=== PATIENT | female | born 1985 | race Caucasian/White ===

== ENCOUNTER → 2019-07-18 | Outpatient (CLI) | payer BC ==
[~2019-07-18] MED LIST: ATIV2TAB PO; BIOT1CAP2 PO; CALC1TAB42 PO; CVS5CHW2 PO; IRON65TA2 PO; PRENTAB9 PO; PROP20TA PO; SERT25TA85 PO; VITA500C24 PO
--- NOTE | 2019-07-20 01:55 | ECWPNPC ---
PATIENT NAME: CHAITANYA MORENO : 1985 GENDER: FEMALE VISIT DATE: 07/18/2019 DISCHARGE DATE: 07/18/19 1618 VISIT LOCKED DATE TIME: PHYSICIAN: AMANDA GANDHI MD RESOURCE: AMANDA GANDHI MD REASON FOR APPOINTMENT 1. PRE-SEDATE HISTORY OF PRESENT ILLNESS FALL RISK SCREENING: SCREENING :ONE FALL WITH INJURY IN THE PAST YEAR 34 YEAR OLD FEMALE PATIENT WITH A HISTORY OF . THE PATIENT WAS SEEN BY HER NEUROLOGIST, DR. SANCHEZ FOR A SPINAL TAP AFTER EXPERIENCING A COUPLE SEIZURES, ONE THAT HAD OCCURRED AT HER WORK, AND ALSO NUMBNESS, TINGLING, AND PAIN ON MAINLY HER RIGHT SIDE. THE PATIENT WAS REFERRED TO OUR CLINIC TO RULE OUT MULTIPLE SCLEROSIS. THE PATIENT DENIES UNEXPLAINED WEIGHT LOSS, FEVER, CHILLS, NEW CHANGES IN HER URINARY OR BOWEL CONTROL. PAIN SCREENING: PATIENT HAS A COMPLAINT OF ACUTE OR CHRONIC PAIN :NO NURSING NOTE: - - - - -. PAIN CENTER INTAKE QUESTIONS: DO YOU HAVE A HISTORY OF MRSA? :NO DO YOU TAKE A BLOOD THINNERS? :NO DO YOU HAVE ANY BLEEDING DISORDERS? :NO ANY NEW NUMBNESS OR WEAKNESS IN YOUR LEGS OR ARMS? :NO ANY PACEMAKER,DEFIBRILLATOR, OR DORSAL COLUMN STIMULATOR? :NO DO YOU HAVE ANY RASHES OR OPEN SORES? :NO ARE YOU ALLERGIC TO IV DYE? :NO ARE YOU DIABETIC? :NO ANY NEW PROBLEMS WITH YOUR MEDICATIONS? :NO HAVE YOU RECEIVED A VACCINE IN THE PAST 30 DAYS? :NO DO YOU PLAN TO RECEIVE A VACCINE IN THE NEXT 21 DAYS? :NO DO YOU NEED ANY PRESCRIPTION? :NO DO YOU TAKE ANY IMMUNOSUPPRESSIVE MEDICATIONS? :NO CURRENT MEDICATIONS TAKING VITAMIN C 500 MG CAPSULE ORALLY TID TAKING ZOLOFT 100 MG TABLET 1 TABLET ORALLY TWICE A DAY TAKING CALCIUM + D3 600-200 MG-UNIT TABLET 1 TABLET WITH A MEAL ORALLY ONCE A DAY TAKING TRAMADOL HCL 50 MG TABLET 1 TABLET NEEDED ORALLY 3 TIMES A DAY TAKING DULOXETINE HCL 60 MG CAPSULE DELAYED RELEASE PARTICLES 1 CAPSULE ORALLY TWICE A DAY TAKING PROPRANOLOL HCL 40 MG TABLET 1 TABLET ORALLY TWICE A DAY TAKING LORAZEPAM 2 MG TABLET 1 TABLET NEEDED ORALLY 4 TIMES A DAY TAKING KEPPRA 750 MG TABLET 1 TABLET ORALLY TWICE A DAY TAKING VITAMIN B-12 1000 MCG TABLET CHEWABLE DIRECTED ORALLY TAKING VITAMIN D3 250 MCG (15470 UT) CAPSULE DIRECTED ORALLY 3 TIMES A WEEK NOT-TAKING KLONOPIN 1 MG TABLET 1 TABLET AT BEDTIME ORALLY QID NOT-TAKING 1 NOT-TAKING IRON 325 (65 FE) MG TABLET 1 TABLET ORALLY TID NOT-TAKING PYRIDIUM 100 MG TABLET 2 TABLETS AFTER MEALS ORALLY THREE TIMES A DAY NOT-TAKING RAPAFLO 8 MG CAPSULE 1 CAPSULE WITH A MEAL ORALLY ONCE A DAY NOT-TAKING OXYCODONE-ACETAMINOPHEN 5-325 MG TABLET 1 TABLET NEEDED ORALLY EVERY 6 HRS NOT-TAKING LEXAPRO 40MG DIRECTED NOT-TAKING SPIRONOLACTONE UNKNOWN TABLET 1 TABLET ORALLY TIB NOT-TAKING MELOXICAM 7.5 MG TABLET 1 TABLET ORALLY BID PRN MEDICATION LIST REVIEWED AND RECONCILED WITH THE PATIENT PAST MEDICAL HISTORY DEPRESSION ANXIETY HX ENDOMETRIOSIS 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 WARTS REMOVED FROM BOTH FEET CYSTO 11/17/12 LAPAROSCOPIC HYSTERECTOMY FOR ENDOMETRIOSIS = DR. BROWNE @[facility] 10/23/2017 APPENDECTOMY 11/2017 CHOLECYSTECTOMY 11/2017 FAMILY HISTORY FATHER: ALIVE, REMOVAL OF BENIGN NEOPLASM PANCREAS, ANXIETY, DEPRESSION MOTHER: ALIVE, HYPERTENSION, DIABETES, HYPERLIPIDEMIA, DEPRESSION 1 BROTHER(S) - HEALTHY. 1 SON(S) , 2 DAUGHTER(S) - HEALTHY. DENIES FAMILY HISTORY OF UROLOGICAL DX. SOCIAL HISTORY GENERAL: TOBACCO USE ARE YOU A:LIGHT TOBACCO SMOKER ALCOHOL SCREENING DID YOU HAVE A DRINK CONTAINING ALCOHOL IN THE PAST YEAR?YES HOW OFTEN DID YOU HAVE SIX OR MORE DRINKS ON ONE OCCASION IN THE PAST YEAR?NEVER (0 POINTS) HOW MANY DRINKS DID YOU HAVE ON A TYPICAL DAY WHEN YOU WERE DRINKING IN THE PAST YEAR?1 OR 2 (0 POINTS) HOW OFTEN DID YOU HAVE A DRINK CONTAINING ALCOHOL IN THE PAST YEAR?TWO TO THREE TIMES PER WEEK (3 POINTS) POINTS3 INTERPRETATIONPOSITIVE RECREATIONAL DRUG USE DRUG USE? DENIES 07/18/19 CAFFEINE CAFFEINE USE?YES COFFEE = 1 CUP PER DAY SEXUAL HX HAD SEX IN THE LAST 12 MONTHS (VAGINAL, ORAL, OR ANAL)?YES WITHMEN ONLY PREVENTION STRATEGIES DISCUSSED:OTHER USE PROTECTION?NO HAVE YOU EVER HAD AN STD?NO YAZIDI [id number] BUDDHIST NO PENTECOSTAL BELIEFS THAT WOULD IMPACT HEALTH CARE. LANGUAGE UPPER SORBIAN. EDUCATION LEVEL OF EDUCATION:FINISHED COLLEGE RN LEARNING BARRIERS / SPECIAL NEEDS BARRIERS TO LEARNING?NO HEARING IMPAIRED?NO VISION IMPAIRED?YES :CORRECTIVE LENSES READINESS TO LEARN?YES LEARNING PREFERENCES?NO DOMESTIC VIOLENCE DO YOU FEEL SAFE IN YOUR ENVIRONMENT?YES DIET: REGULAR. EXERCISE: NO REGULAR EXERCISE. MARITAL STATUS: . PAIN CLINIC PFS, CLERGY, PUBLIC HEALTH REFERRALS HAS THE PATIENT BEEN EDUCATED REGARDING HIS/HER PLAN OF CARE?YES HAS THE PATIENT BEEN EDUCATED REGARDING PAIN, THE RISK FOR PAIN, THE IMPORTANCE OF EFFECTIVE PAIN MANAGEMENT, AND THE PAIN ASSESSMENT PROCESS?YES ADVANCE DIRECTIVE ADVANCE DIRECTIVE DISCUSSED WITH PATIENT: HCP ILANDWIGHT MORENO [phone] HOSPITALIZATION/MAJOR DIAGNOSTIC PROCEDURE OVARIAN CYST CHILDBIRTH HYSTERECTOMY REVIEW OF SYSTEMS CONSTITUTIONAL: ANY RECENT FEVER OR ILLNESS NO . ANY CHANGE IN YOUR MEDICAL CONDITION? NO . CHILLS NO . MUSCULOSKELETAL: ANY NEW PATTERNS OF PAIN OR NUMBNESS? YES . SYSTEMIC LUPUS NO . LYME DISEASE NO . GASTROENTEROLOGY: ANY NEW CHANGE IN BOWEL CONTROL? NO . BARRETTS ESOPHAGUS NO . CIRRHOSIS NO . HEPATITIS NO . LIVER FAILURE NO . NO ABDOMINAL PAIN. ACID REFLUX NO . NO ANOREXIA. NO CONSTIPATION. NO CRAMPING. NO NAUSEA. NO RECTAL BLEEDING. NO VOMITING. UNEXPLAINED WEIGHT LOSS NO . GENITOURINARY: ANY NEW CHANGE IN BLADDER CONTROL? NO . IS THERE A CHANCE YOU COULD BE ? NO . NEUROLOGY: HEAD INJURY NO . NEW ONSET DIZZINESS NO . HEADACHE NO, INTERMITTENT . STROKES NO . VERTIGO YES . CARDIOLOGY: ANGINA NO . HEART ATTACK NO . HEART SURGERY NO . CONGESTIVE HEART FAILURE/FLUID OVERLOAD NO . CHEST PAIN NO . HIGH BLOOD PRESSURE NO . IRREGULAR HEART BEAT NO . RESPIRATORY: SLEEP APNEA NO . ASTHMA NO . SHORTNESS OF BREATH ON EXERTION NO . COUGH NO . WHEEZING NO . ENDOCRINOLOGY: ADRENAL GLAND DISORDER NO . THYROID DISORDER NO . VITAL SIGNS WT 167.8 LBS, HT 64 IN, BMI 28.80 INDEX, BP 114/56 MM HG, HR 60 /MIN, RR 18 /MIN, TEMP 97.0 F, OXYGEN SAT % 92%, NA INITIALS AW 1501, REVIEWED BY: LS. EXAMINATION GENERAL EXAMINATION: PATIENT IS ALERT O X 3 AND COOPERATIVE. LUNGS CLEAR, TO AUSCULTATION. HEART: NO MURMURS OR GALLOPS; FACIAL CRANIAL NERVES ARE GROSSLY NORMAL. GOOD SYMMETRY OF FACIAL MUSCLE MOVEMENT. NORMAL VISUAL ONEAL. RIGHT LEG IS WEAKER AT EXTENSION AND FLEXION. 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 ASSESSMENTS NEUROLOGICAL SYMPTOMS - R29.90 (PRIMARY) RULE OUT MULTIPLE SCLEROSIS. TREATMENT NEUROLOGICAL SYMPTOMS CLINICAL NOTES: WE DISCUSSED SEVERAL ISSUES WITH MS. MORENO' CASE. THE PATIENT WILL HAVE HER SPINAL TAP WITH IV SEDATION NEXT WEEK. WE DISCUSSED THE BENEFITS, RISKS, AND ALTERNATIVES OF THE INJECTION AND THE PATIENT WOULD LIKE TO PROCEED. INSTRUCTIONS WERE GIVEN, QUESTIONS WERE ANSWERED, PATIENT REPORTS UNDERSTANDING AND AGREES WITH THE PLAN. I, NATALIIA VÁZQUEZ, DOCUMENTED THE ABOVE INFORMATION ACTING A SCRIBE FOR DR. GANDHI. I HAVE REVIEWED THE ABOVE DOCUMENT, WRITTEN BY NATALIIA LEBRON AND I VERIFY THAT IT IS ACCURATE. . PROCEDURE CODES G8427 CURRENT MEDS W/DOSAGES DOCUMENTED G8730 PAIN ASSESS POS TOOL F/U PLAN DOC FA211 ESTABILISHED PATIENT [facility] FACILITY CHARGE DISPOSITION & COMMUNICATION FOLLOW UP 1 WEEK ELECTRONICALLY SIGNED BY AMANDA GANDHI MD, MD ON 07/19/2019 AT 02:57 PM EDT DISCLAIMER : THIS IS A VISIT SUMMARY EXTRACTED FROM THE [employer] CHART. IT IS NOT A COPY OF THE [employer] PROGRESS NOTE. MTDD
== END ==
LOC: M PAIN 14:45
PROVIDERS: ATTEND Anesthesiology
DX: R29.90 Unspecified symptoms and signs involving the nervous system (principal)

== ENCOUNTER → 2019-07-21 | Outpatient (CLI) | payer BC | LOC: M LABSMTC 09:31 | PROVIDERS: ATTEND Anesthesiology | DX: Z03.818 Encounter for observation for suspected exposure to other biological agents ruled out (principal); Z11.59 Encounter for screening for other viral diseases | CPT/HCPCS: C9803; U0003 ==

== ENCOUNTER → 2019-07-24 | Outpatient (CLI) | payer BC ==
[~2019-07-24] MED LIST changes: +LIDOCAINE 1% SDV 30ML VIAL As Ordered ONE; +MIDAZOLAM INJ 2MG/2ML VIAL (J2250 PER 1MG) As Ordered ONE; +fentaNYL 100 MCG/2 ML INJECTION (J3010) As Ordered ONE
[2019-07-24 11:51] LABS: COLOR, CSF COLORLESS (COLORLESS); CSF TUBE# CELL CNT TUBE 3
[2019-07-24 11:52] LABS: APPEARANCE, CSF CLEAR (CLEAR)
[2019-07-24 12:17] LABS: CSF TUBE# GLU TUBE 1; CSF TUBE# TP TUBE 1; GLUCOSE CSF 57 MG/DL (40-75); TOTAL PROTEIN,CSF 34 MG/DL (15-45)
--- NOTE | 2019-07-24 23:39 | ECWPNPC ---
PATIENT NAME: CHAITANYA MORENO : 1985 GENDER: FEMALE VISIT DATE: 07/24/2019 DISCHARGE DATE: 07/24/19 1459 VISIT LOCKED DATE TIME: PHYSICIAN: AMANDA GANDHI MD RESOURCE: AMANDA GANDHI MD REASON FOR APPOINTMENT 1. SPINAL TAP PER DR Estiven BATES DONE HISTORY OF PRESENT ILLNESS GENERAL: - -. FALL RISK SCREENING: SCREENING :ONE FALL WITHOUT INJURY IN THE PAST YEAR BRUISING ON ARM PAIN SCREENING: PATIENT HAS A COMPLAINT OF ACUTE OR CHRONIC PAIN :YES LOCATION OF PAIN:LEG(S) INTENSITY OF PAIN (SCALE OF 1 TO 10):0 PAIN RATING CHANGES WHAT DOES YOUR PAIN FEEL LIKE:ACHING DURATION:PERIODIC, INTERMITTENT PAIN IS INCREASED BY:OTHERS NOTHING PAIN IS DECREASED BY:USE OF PAIN MEDICATIONS, OTHERS HEAT NURSING NOTE: - -. PAIN CENTER INTAKE QUESTIONS: DO YOU HAVE A HISTORY OF MRSA? :NO DO YOU TAKE A BLOOD THINNERS? :NO DO YOU HAVE ANY BLEEDING DISORDERS? :NO ANY NEW NUMBNESS OR WEAKNESS IN YOUR LEGS OR ARMS? :NO ANY PACEMAKER,DEFIBRILLATOR, OR DORSAL COLUMN STIMULATOR? :NO DO YOU HAVE ANY RASHES OR OPEN SORES? :NO ARE YOU ALLERGIC TO IV DYE? :NO ARE YOU DIABETIC? :NO ANY NEW PROBLEMS WITH YOUR MEDICATIONS? :NO HAVE YOU RECEIVED A VACCINE IN THE PAST 30 DAYS? :NO DO YOU PLAN TO RECEIVE A VACCINE IN THE NEXT 21 DAYS? :NO DO YOU TAKE ANY IMMUNOSUPPRESSIVE MEDICATIONS? :NO ANY HISTORY OF SEIZURES? :YES MOST RECENT SEIZURE WAS IN JANUARY ANY HISTORY OF CARDIAC ISSUES OR EVENTS? :NO DO YOU HAVE SLEEP APNEA? : NO. ANY RECENT HEAD INJURY? :NO DO YOU HAVE ANY NEW INFECTIONS? :NO IS THERE A CHANCE YOU COULD BE ? :NO ARE YOU BREAST FEEDING? :NO WHEN DID YOU LAST EAT? : -2330 07/23/19 WHEN DID YOU LAST DRINK? : -0700 07/24/19 WHAT DID YOU LAST DRINK? : -FLAVORED WATER NAME OF PERSON DRIVING YOU HOME? : -SPOUSE - ILAN DO YOU HAVE ANY OTHER QUESTIONS OR CONCERNS? : - CURRENT MEDICATIONS TAKING VITAMIN C 500 MG CAPSULE ORALLY TID, NOTES: 07/23/19 07 TAKING ZOLOFT 100 MG TABLET 1 TABLET ORALLY TWICE A DAY, NOTES: 07/24/19 07 TAKING CALCIUM + D3 600-200 MG-UNIT TABLET 1 TABLET WITH A MEAL ORALLY ONCE A DAY, NOTES: 07/23/19 230 TAKING TRAMADOL HCL 50 MG TABLET 1 TABLET NEEDED ORALLY 3 TIMES A DAY, NOTES: 07/23/19699 TAKING DULOXETINE HCL 60 MG CAPSULE DELAYED RELEASE PARTICLES 1 CAPSULE ORALLY TWICE A DAY, NOTES: 07/24/19699 TAKING PROPRANOLOL HCL 40 MG TABLET 1 TABLET ORALLY TWICE A DAY, NOTES: 07/24/19699 TAKING LORAZEPAM 2 MG TABLET 1 TABLET NEEDED ORALLY 4 TIMES A DAY, NOTES: 07/23/192329 TAKING KEPPRA 750 MG TABLET 1 TABLET ORALLY TWICE A DAY, NOTES: 07/24/19699 TAKING VITAMIN B-12 1000 MCG TABLET CHEWABLE DIRECTED ORALLY , NOTES: 07/23/19699 TAKING VITAMIN D3 250 MCG (93834 UT) CAPSULE DIRECTED ORALLY 3 TIMES A WEEK, NOTES: 07/23/19699 NOT-TAKING KLONOPIN 1 MG TABLET 1 TABLET AT BEDTIME ORALLY QID NOT-TAKING 1 NOT-TAKING IRON 325 (65 FE) MG TABLET 1 TABLET ORALLY TID NOT-TAKING PYRIDIUM 100 MG TABLET 2 TABLETS AFTER MEALS ORALLY THREE TIMES A DAY NOT-TAKING RAPAFLO 8 MG CAPSULE 1 CAPSULE WITH A MEAL ORALLY ONCE A DAY NOT-TAKING OXYCODONE-ACETAMINOPHEN 5-325 MG TABLET 1 TABLET NEEDED ORALLY EVERY 6 HRS NOT-TAKING LEXAPRO 40MG DIRECTED NOT-TAKING SPIRONOLACTONE UNKNOWN TABLET 1 TABLET ORALLY TIB NOT-TAKING MELOXICAM 7.5 MG TABLET 1 TABLET ORALLY BID PRN MEDICATION LIST REVIEWED AND RECONCILED WITH THE PATIENT PAST MEDICAL HISTORY DEPRESSION ANXIETY HX ENDOMETRIOSIS 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 WARTS REMOVED FROM BOTH FEET CYSTO 11/17/12 LAPAROSCOPIC HYSTERECTOMY FOR ENDOMETRIOSIS = DR. BROWNE @[facility] 10/23/2017 APPENDECTOMY 11/2017 CHOLECYSTECTOMY 11/2017 FAMILY HISTORY FATHER: ALIVE, REMOVAL OF BENIGN NEOPLASM PANCREAS, ANXIETY, DEPRESSION MOTHER: ALIVE, HYPERTENSION, DIABETES, HYPERLIPIDEMIA, DEPRESSION 1 BROTHER(S) - HEALTHY. 1 SON(S) , 2 DAUGHTER(S) - HEALTHY. DENIES FAMILY HISTORY OF UROLOGICAL DX. SOCIAL HISTORY GENERAL: TOBACCO USE ARE YOU A:LIGHT TOBACCO SMOKER SMOKING CESSATION INFORMATION GIVEN07/21/2019 ENCOURAGED TO QUIT LATEX QUESTIONNAIRE LATEX ALLERGY : HAVE YOU EVER DEVELOPED ANY TYPE OF REACTION AFTER HANDLING LATEX PRODUCTS SUCH RUBBER GLOVES, CONDOMS, DIAPHRAGMS, BALLOONS, SOCKS, OR UNDERWEAR?NO LATEX ALLERGY : HAVE YOU EVER DEVELOPED ANY TYPE OF REACTION DURING OR AFTER DENTAL APPOINTMENT, VAGINAL/RECTAL EXAMINATION, SURGICAL PROCEDURE, OR ANY OTHER EXPOSURE?NO LATEX RISK : HAVE YOU EVER HAD ANY DIFFICULTY BREATHING OR HIVES AFTER EATING OR HANDLING ANY FRUITS, OR VEGETABLES; SUCH KIWI, BANANAS, STONE FRUITS, OR CHESTNUTSNO LATEX RISK : DO YOU HAVE A PREVIOUS PERSONAL HISTORY OF MORE THAN NINE SURGERIES, SPINA BIFIDA, OR REPEATED CATHERIZATIONS? NO LATEX RISK : ARE YOU FREQUENTLY EXPOSED TO LATEX PRODUCTS IN YOUR OCCUPATION?NO DATE ASKED : 07/21/2019 ALCOHOL SCREENING DID YOU HAVE A DRINK CONTAINING ALCOHOL IN THE PAST YEAR?YES HOW OFTEN DID YOU HAVE SIX OR MORE DRINKS ON ONE OCCASION IN THE PAST YEAR?NEVER (0 POINTS) HOW MANY DRINKS DID YOU HAVE ON A TYPICAL DAY WHEN YOU WERE DRINKING IN THE PAST YEAR?1 OR 2 (0 POINTS) HOW OFTEN DID YOU HAVE A DRINK CONTAINING ALCOHOL IN THE PAST YEAR?TWO TO THREE TIMES PER WEEK (3 POINTS) POINTS3 INTERPRETATIONPOSITIVE RECREATIONAL DRUG USE DRUG USE? DENIES 07/18/19 CAFFEINE CAFFEINE USE?YES COFFEE = 1 CUP PER DAY SEXUAL HX HAD SEX IN THE LAST 12 MONTHS (VAGINAL, ORAL, OR ANAL)?YES WITHMEN ONLY PREVENTION STRATEGIES DISCUSSED:OTHER USE PROTECTION?NO HAVE YOU EVER HAD AN STD?NO LATTER DAY [id number] ISLAM NO YARSANISM BELIEFS THAT WOULD IMPACT HEALTH CARE. LANGUAGE SINGAPOREAN. EDUCATION LEVEL OF EDUCATION:FINISHED COLLEGE RN LEARNING BARRIERS / SPECIAL NEEDS BARRIERS TO LEARNING?NO HEARING IMPAIRED?NO VISION IMPAIRED?YES :CORRECTIVE LENSES READINESS TO LEARN?YES LEARNING PREFERENCES?NO DOMESTIC VIOLENCE DO YOU FEEL SAFE IN YOUR ENVIRONMENT?YES DIET: REGULAR. EXERCISE: NO REGULAR EXERCISE. MARITAL STATUS: . PAIN CLINIC PFS, CLERGY, PUBLIC HEALTH REFERRALS WAS THE PROVIDER NOTIFIED OF ANY PERTINENT INFO?YES HAS THE PATIENT BEEN EDUCATED REGARDING HIS/HER PLAN OF CARE?YES HAS THE PATIENT BEEN EDUCATED REGARDING PAIN, THE RISK FOR PAIN, THE IMPORTANCE OF EFFECTIVE PAIN MANAGEMENT, AND THE PAIN ASSESSMENT PROCESS?YES ADVANCE DIRECTIVE ADVANCE DIRECTIVE DISCUSSED WITH PATIENT: HCP ILAN MORENO [phone] HOSPITALIZATION/MAJOR DIAGNOSTIC PROCEDURE OVARIAN CYST CHILDBIRTH HYSTERECTOMY VITAL SIGNS WT 167 LBS, HT 64 IN, BMI 28.66 INDEX, BP 124/64 MM HG, HR 70 /MIN, RR 18 /MIN, TEMP 96.9 F, OXYGEN SAT % 100%, SAFE IN ENV? (Y/N) YES, NA [place] [facility] [place], REVIEWED BY: MARIYA. EXAMINATION GENERAL EXAMINATION: THE PATIENT IS ALERT, ORIENTED TIMES THREE AND COOPERATIVE. HEART SHOWS REGULAR RHYTHM, NO MURMURS AND NO GALLOPS. LUNGS ARE CLEAR TO AUSCULTATION. ASSESSMENTS NEUROLOGICAL SYMPTOMS - R29.90 (PRIMARY) R/O MS. PROCEDURES PAIN NURSING RECORD PRE-PROCEDURE IV SITE LEFT HAND, IV STARTED # 20, IV STARTED BY: Anisa TALBERT RN, IV ATTEMPTS 1 PROCEDURE IN ROOM 1035, PHYSICIAN IN ROOM 1044, START 1057, FINISH 1115, PHYSICIAN OUT OF ROOM 1120, OUT OF ROOM 1129, STEROID N/A, O2 NC 2 LPM, ECG NORMAL SINUS, PATIENT SHIELDED NO, SAFETY STRAP NO, PREP BETADINE DR. GANDHI, IV INFUSED LACTATED RINGERS 500 ML, DRESSING TEGADERM DR. GANDHI LOC: 1. ALERT, ORIENTED RESP: 1. REGULAR, NO DYSPNEA COLOR: 1. PINK SKIN: 1. WARM, DRY POSITION: 3. LATERAL VITALS: 1040 101/58 60-18 100% 1045 101/56 60-18 100% 1046 VERSED 1 MG IV BY Hitesh WHITFIELD RN 1050 97/53 60-16 100% 1052 VERSED 1 MG IV BY Hitesh WHITFIELD RN 1055 102/55 60-16 100% 1059 FENTANYL 25 MCG IV BY Hitesh WHITFIELD RN 1100 94/54 56-16 100%. OPENING PRESSURE 18 CM WATER IN LEFT LATERAL POSITION. 1104 FENTANYL 25 MCG IV BY Hitesh WHITFIELD RN 1105 102/55 61-16 100% 1110 102/57 62-16 100% 1115 105/58 66-16 100% 1130 122/57 60-16 100% SPINAL TAPPATIENT INTERVIEWED, EXAMINATIONS AND TREATMENT QUESTIONNAIRES REVIEWED.QUESTION OF MULTIPLE SCLEROSISPROCEDURE, RISKS AND BENEFITS WERE DISCUSSED WITH PATIENT.PATIENT POSITIONED: LEFT LATERALTREATMENT AREA PREPPED WITH BETADINE IN STERILE FASHION.LOCAL INFILTRATE 1% LIDOCAINE AT THE L3-L4 INTERSPACE.22-GAUGE QUINCKE NEEDLE ADVANCED UNTIL THE DURA WAS FELT AND CSF IS FREE-FLOWING.BLOOD RETURN ENCOUNTERED: NOPARASTHESIA ENCOUNTERED: NOOPENING PRESSURE WAS MEASURED AT 18 CM OF WATER.4 VIALS X 3.0 CC OF CSF WAS COLLECTED.CSF DESCRIPTION: CLEARCSF SENT FOR STUDIES ORDERED BY REFERRING PHYSICIAN.VITAL SIGNS: STABLECOMPLICATIONS: NONE.EBL: LESS THAN 5 MLIV SEDATION START TIME: 1046IV SEDATION END TIME: 1120TOTAL [id number] TIME: 34 MINUTESDISCHARGE WHEN PATIENT MEETS CRITERIAPATIENT WILL FOLLOW UP WITH DR. SANCHEZ AND CALL OUR OFFICE NEEDED. PROCEDURE CODES 06854 SPINAL FLUID TAP DIAGNOSTIC 77069 MOD SED SAME PHYS/QHP 5/>YRS 93321 MOD SED SAME PHYS/QHP EA DISPOSITION & COMMUNICATION FOLLOW UP F/UP WITH NEUROLOGIST (REASON: POST SPINAL TAP) ELECTRONICALLY SIGNED BY AMANDA GANDHI MD, ON 07/24/2019 AT 12:32 PM EDT DISCLAIMER : THIS IS A VISIT SUMMARY EXTRACTED FROM THE [employer] CHART. IT IS NOT A COPY OF THE [employer] PROGRESS NOTE. MTDD
== END ==
LOC: M PAIN 09:45
PROVIDERS: ATTEND Anesthesiology
DX: R29.90 Unspecified symptoms and signs involving the nervous system (principal)
CPT/HCPCS: 36415; 62270; 82784; 82945; 83916; 84157; 87070; 87102; 87205; 87252; 87483; 88108; 88313; 89050; 99152; 99153; J2250; J3010

== ENCOUNTER → 2021-09-11 | Outpatient (CLI) | payer BC ==
[~2021-09-11] MED LIST changes: -CVS5CHW2 PO; -LIDOCAINE 1% SDV 30ML VIAL As Ordered ONE; +MELA5TAB47 PO; -MIDAZOLAM INJ 2MG/2ML VIAL (J2250 PER 1MG) As Ordered ONE; -fentaNYL 100 MCG/2 ML INJECTION (J3010) As Ordered ONE
[2021-09-11 10:46] LABS: FOLATE 7.8 NG/ML
== END ==
LOC: M WUC 08:05
PROVIDERS: ATTEND Psychiatry & Neurology Neurology
DX: G35 Multiple sclerosis (principal)

== ENCOUNTER → 2021-12-17 | Outpatient (CLI) | payer BC ==
[2021-12-17 10:42] LABS: BASO # 0.1 10^3/uL (0.0-0.2); BASO % 0.6 % (0.0-1.0); EOS # 0.1 10^3/uL (0.0-0.5); HEMATOCRIT 41.9 % (36.0-47.0); HEMOGLOBIN 13.9 g/dl (12.0-15.5); LYMPH # 1.8 10^3/uL (1.5-5.0); MEAN CORPUSCULAR HEMOGLOBIN 29.4 pg (27.0-33.0); MEAN CORPUSCULAR HGB CONC 33.2 g/dl (32.0-36.5); MEAN CORPUSCULAR VOLUME 88.6 fl (80.0-96.0); MONO # 0.7 10^3/uL (0.0-0.8); MONO % 8.3 % (2.0-8.0); NEUTROPHILS # 5.6 10^3/uL (1.5-8.5); NEUTROPHILS % 67.9 % (36.0-66.0); PLATELET COUNT, AUTOMATED 314 10^3/uL (150-450); RED BLOOD COUNT 4.73 10^6/uL (4.00-5.40); WHITE BLOOD COUNT 8.2 10^3/uL (4.0-10.0)
[2021-12-17 11:40] LABS: ALBUMIN 3.8 GM/DL (3.2-5.2); ALT/SGPT 29 U/L (12-78); BILIRUBIN,TOTAL 0.8 MG/DL (0.2-1.0); BLOOD UREA NITROGEN 12 MG/DL (7-18); CALCIUM LEVEL 9.2 MG/DL (8.5-10.1); CARBON DIOXIDE LEVEL 30 MEQ/L (21-32); CHLORIDE LEVEL 101 MEQ/L (98-107); CREATININE FOR GFR 0.63 MG/DL (0.55-1.30); GLOMERULAR FILTRATION RATE > 60.0 (>60); GLUCOSE, FASTING 60 MG/DL (70-100); POTASSIUM SERUM 4.5 MEQ/L (3.5-5.1); SODIUM LEVEL 139 MEQ/L (136-145); TOTAL PROTEIN 7.6 GM/DL (6.4-8.2)
[2021-12-17 12:20] LABS: HEPATITIS B SURFACE ANTIBODY POSITIVE (POSITIVE)
[2021-12-17 12:31] LABS: HEPATITIS B SURFACE ANTIGEN NEGATIVE (NEGATIVE)
[2021-12-17 12:59] LABS: HEPATITIS C VIRUS ABY INDEX 0.2 INDEX (<0.8)
== END ==
LOC: M WUC 08:12
PROVIDERS: ATTEND Psychiatry & Neurology Neurology
DX: G35 Multiple sclerosis (principal); Z11.9 Encounter for screening for infectious and parasitic diseases, unspecified

== ENCOUNTER → 2022-01-15 | Outpatient (REF) ==
[2022-01-15 14:04] LABS: RSV AMPLIFICATION NEGATIVE (NEGATIVE)
== END ==
LOC: M LABSMTC 10:54
PROVIDERS: ATTEND Family Medicine
DX: Z20.822 Contact with and (suspected) exposure to COVID-19 (principal)

== ENCOUNTER → 2022-04-24 | Outpatient (REF) | LOC: M LABSMTC 09:34 | PROVIDERS: ATTEND Family Medicine | DX: Z11.52 Encounter for screening for COVID-19 (principal) ==

== ENCOUNTER 2022-09-24 09:56 | Outpatient (CLI) | payer BC ==
[~2022-09-24] VITALS: Ht 160 cm; Wt 69.8 kg
[2022-09-24 10:05] VITALS: BP 140/73; O2SAT 97
[2022-09-24] MEDS ORDERED: methylPREDNISolone 125MG 2ML VIAL IV ONE (10:15)
[2022-09-24] MEDS ORDERED: ACETAMINOPHEN TAB 650MG DOSE (2X325MG) PO ONE (10:15)
[2022-09-24] MEDS ORDERED: diphenhydrAMINE 25MG CAP PO ONE (10:15)
[2022-09-24] MEDS ORDERED: OCRELIZUMAB 300 MG in NS 250 ML IV ONE (10:15)
[2022-09-24 11:45] VITALS: BP 115/68; O2SAT 98
[2022-09-24 12:15] VITALS: BP 124/75; O2SAT 99
[2022-09-24 12:45] VITALS: BP 123/80; O2SAT 98
[2022-09-24 14:00] VITALS: BP 139/61; O2SAT 97
[2022-09-24 14:40] VITALS: BP 132/72; O2SAT 96
== END 2022-09-24 14:40 | disposition home or self-care (01) ==
LOC: M INFU 09:56
PROVIDERS: ATTEND Psychiatry & Neurology Neurology
DX: G35 Multiple sclerosis (principal); Z88.8 Allergy status to other drugs, medicaments and biological substances
CPT/HCPCS: 96365; 96366; J2350; J2930

== ENCOUNTER 2022-10-09 09:00 | Outpatient (CLI) | payer BC ==
[~2022-10-09] VITALS: Ht 162.6 cm; Wt 65.9 kg
[2022-10-09 09:18] VITALS: BP 134/77; O2SAT 97
[2022-10-09] MEDS ORDERED: OCRELIZUMAB 300 MG in NS 250 ML IV ONE (09:30)
[2022-10-09] MEDS ORDERED: ACETAMINOPHEN TAB 650MG DOSE (2X325MG) PO ONE (09:30)
[2022-10-09] MEDS ORDERED: diphenhydrAMINE 25MG CAP PO ONE (09:30)
[2022-10-09] MEDS ORDERED: methylPREDNISolone 125MG 2ML VIAL IV ONE (09:30)
[2022-10-09 10:30] VITALS: BP 128/73; O2SAT 98
[2022-10-09 12:52] VITALS: BP 139/83; O2SAT 97
== END 2022-10-09 12:50 | disposition home or self-care (01) ==
LOC: M INFU 09:00
PROVIDERS: ATTEND Psychiatry & Neurology Neurology
DX: G35 Multiple sclerosis (principal); Z88.8 Allergy status to other drugs, medicaments and biological substances
CPT/HCPCS: 96365; 96366; 96367; J2350; J2930

== ENCOUNTER → 2023-05-21 | Outpatient (REF) | LOC: M EMP 14:07 | PROVIDERS: ATTEND Family Medicine | DX: Z11.52 Encounter for screening for COVID-19 (principal) ==

== ENCOUNTER 2023-06-29 10:02 | Outpatient (CLI) | payer BC ==
[~2023-06-29] VITALS: Ht 160 cm; Wt 73.0 kg
[2023-06-29 10:10] VITALS: BP 134/88; O2SAT 98
[2023-06-29] MEDS: methylPREDNISolone 125MG 2ML VIAL IV ONE (10:21)
[2023-06-29] MEDS: diphenhydrAMINE 25MG CAP PO ONE (10:22)
[2023-06-29] MEDS: ACETAMINOPHEN TAB 650MG DOSE (2X325MG) PO ONE (10:22)
[2023-06-29] MEDS: OCRELIZUMAB 600 MG in NS 500 ML IV ONE (10:53)
[2023-06-29 11:30] VITALS: BP 129/85; O2SAT 98
[2023-06-29 12:00] VITALS: BP 127/86; O2SAT 98
[2023-06-29 12:30] VITALS: BP 156/88; O2SAT 100
[2023-06-29 13:00] VITALS: BP 133/69; O2SAT 98
[2023-06-29 15:05] VITALS: BP 142/88; O2SAT 97
== END 2023-06-29 15:05 | disposition home or self-care (01) ==
LOC: M INFU 10:02
PROVIDERS: ATTEND Psychiatry & Neurology Neurology
DX: G35 Multiple sclerosis (principal); Z88.8 Allergy status to other drugs, medicaments and biological substances
CPT/HCPCS: 96365; 96366; 96367; J2350; J2919

== ENCOUNTER 2024-02-15 07:48 | Outpatient (CLI) | payer BC ==
[~2024-02-15] VITALS: Ht 162.6 cm; Wt 70.5 kg
[~2024-02-15 07:48] MED LIST changes: +AMPH1TAB2 PO; +CALC-190 PO; +EFFE37.52 PO; +GABA-1172 PO; +LORA2CON5 PO; +LORA2TAB14 PO; +NEUR100C PO; +OXYC7.5T3 PO; +SERT200C PO; +THERTAB52 PO; +TRAM50TA2 PO
[2024-02-15 08:00] VITALS: BP 152/85; O2SAT 100
[2024-02-15] MEDS: diphenhydrAMINE 25MG CAP PO ONE (08:05)
[2024-02-15] MEDS: methylPREDNISolone 125MG 2ML VIAL IV ONE (08:05)
[2024-02-15] MEDS: ACETAMINOPHEN 325 MG TAB PO ONE (08:05)
[2024-02-15] MEDS: OCRELIZUMAB 600 MG in NS 500 ML IV ONE (08:30)
[2024-02-15 09:00] VITALS: BP 128/76; O2SAT 98
[2024-02-15 09:30] VITALS: BP 127/75; O2SAT 98
[2024-02-15 10:00] VITALS: BP 133/84; O2SAT 99
[2024-02-15 10:30] VITALS: BP 139/81; O2SAT 100
[2024-02-15 12:53] VITALS: BP 120/76; O2SAT 100
== END 2024-02-15 12:45 ==
LOC: MERGE 07:48 → M INFU 07:48
PROVIDERS: ATTEND Psychiatry & Neurology Neurology
DX: G35 Multiple sclerosis (principal); Z88.8 Allergy status to other drugs, medicaments and biological substances
CPT/HCPCS: 96365; 96366; 96375; J2350; J2919

== ENCOUNTER 2024-08-15 07:54 | Outpatient (CLI) | payer BC ==
[~2024-08-15] VITALS: Ht 160 cm; Wt 62.6 kg
[2024-08-15] VITALS (7 sets, daily range): BP systolic 128–143; BP diastolic 77–84; O2SAT 97–100
[2024-08-15] MEDS: ACETAMINOPHEN 325 MG TAB PO ONE (08:08)
[2024-08-15] MEDS: OCRELIZUMAB 600 MG in NS 500 ML IV ONE (08:57)
== END 2024-08-15 13:20 | disposition home or self-care (01) ==
LOC: M INFU 07:54 → MERGE 08:00 → M INFU 13:20
PROVIDERS: ATTEND Psychiatry & Neurology Neurology
DX: G35 Multiple sclerosis (principal)
CPT/HCPCS: 96365; 96366; J2350; J2919